=== PATIENT | female | born 1995 | race African-American/Black ===

== ENCOUNTER → 2017-07-25 | Emergency (ER) | payer BC ==
[~2017-07-25] VITALS: Ht 154.9 cm; Wt 52.2 kg
[~2017-07-25] MED LIST: BACTRIM DS TAB1 EACH PO; LORAZEPAM 1 MG TAB PO ONE; TYLENOL WITH C1 EACH PO
[2017-07-26 04:45] VITALS: BP 145/86
== END | disposition home or self-care (01) ==
LOC: FSED 23:48
DX: K61.1 Rectal abscess (principal); R10.2 Pelvic and perineal pain; N18.6 End stage renal disease; Z99.2 Dependence on renal dialysis; Z94.0 Kidney transplant status
CPT/HCPCS: 87071; 87186; 87205